=== PATIENT | male | born 1980 | race Two or more races ===

== ENCOUNTER 2020-03-02 12:35 | Emergency (ER) | payer OTHER ==
[~2020-03-02] VITALS: Ht 157.5 cm; Wt 72.9 kg
[2020-03-02 12:38] VITALS: BP 162/98
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
[2020-03-02] MEDS ORDERED: CYCL5TAB PO (13:39)
== END 2020-03-02 13:41 | disposition home or self-care (01) ==
LOC: ER 12:35
DX: S46.812A Strain of other muscles, fascia and tendons at shoulder and upper arm level, left arm, initial encounter (principal); S50.02XA Contusion of left elbow, initial encounter; S20.212A Contusion of left front wall of thorax, initial encounter; I10 Essential (primary) hypertension; V49.9XXA Car occupant (driver) (passenger) injured in unspecified traffic accident, initial encounter; Y93.89 Activity, other specified; Y92.413 State road as the place of occurrence of the external cause; Y99.8 Other external cause status
CPT/HCPCS: 71046; 73030; 73080; 99284